=== PATIENT | male | born 1980 | race Caucasian/White ===

== ENCOUNTER 2020-01-07 15:31 | Emergency (ER) | payer MEDICAID, SELFPAY ==
[2020-01-07] VITALS (8 sets, daily range): BP systolic 81–104; BP diastolic 48–70; PULSE 51–102; RESP 16–20; TEMP 36.6; O2SAT 96–99; BMI 24.3
--- NOTE | 2020-01-07 15:34 | PC.NURSE ---
placed a call with Daxa Fletcher office staff for her to come see pt before she leaves for the day. Pt has requested some help with his issues
[2020-01-07 16:18] LABS: Basophils % 0.4 % (0.1-2.0); Eosinophils # 0.2 K/mm3 (0.0-0.4); Eosinophils % 2.8 % (0.1-12.0); Hemoglobin 15.7 g/dL (14.1-18.0); Lymphocytes # 1.8 K/mm3 (0.7-4.5); Lymphocytes % 25.4 % (10-50); Mean Corpuscular HGB Conc 34.9 g/dL (31.8-35.4); Mean Corpuscular Hemoglobin 30.5 pg (27.0-31.2); Mean Corpuscular Volume 87.4 fl (80-94); Monocytes # 0.4 K/mm3 (0.1-1.0); Monocytes % 5.2 % (1.7-9.3); Neutrophils # 4.6 K/mm3 (1.8-7.8); Neutrophils % 66.2 % (37.0-80.0); Platelet Count 220 K/mm3 (142-424); Red Blood Count 5.15 M/mm3 (4.60-6.20); Red Cell Distribution Width 13.1 % (11.5-17.5); White Blood Count 6.9 K/mm3 (4.8-10.8)
[2020-01-07 16:25] LABS: Alanine Aminotransferase 35 U/L (12-78); Albumin Level 4.4 g/dl (3.5-5.0); Albumin/Globulin Ratio 1.3 (1.1-1.8); Alkaline Phosphatase 83 U/L (38-126); Anion Gap 15.2 mEq/L (5-15); Aspartate Amino Transferase 49 U/L (17-59); Bilirubin,Total 0.9 mg/dl (0.2-1.3); Blood Urea Nitrogen 15 mg/dl (9-20); Calcium 9.6 mg/dl (8.4-10.2); Carbon Dioxide 28 mmol/L (22.0-30.0); Chloride 98 mmol/L (98-107); Creatinine Clearance Estimated 83 mL/min (50-200); Estimated Glomerular Filt Rate 68 ml/min (>60); GFR (African American) 82 ML/MIN (>60); Globulin 3.3 g/dL (1.3-3.2); Glucose 154 mg/dl (74-100); Lactic Acid 1.7 mmol/L (0.7-2.1); Potassium 3.2 mmoL/L (3.5-5.1); Sodium 138 mmol/L (136-145); Total Protein,Serum 7.7 g/dl (6.3-8.2)
[2020-01-07 16:28] LABS: Acetaminophen < 10 ug/ml (10-30)
--- NOTE | 2020-01-07 16:40 | HMH.EDGENADL ---
ED Disposition Clinical Impression: Heroin overdose Qualifiers: Encounter type: initial encounter Injury intent: accidental or unintentional Qualified Code(s): T40.1X1A - Poisoning by heroin, accidental (unintentional), initial encounter Hypotension Qualifiers: Hypotension type: other hypotension type Qualified Code(s): I95.89 - Other hypotension Disposition: Home, Self-Care Condition on Discharge: Good Instructions: DI for Drug Overdose in Adults Additional Instructions: See Daxa Fletcher in her office on 01/16/2020. Naltrexone, 1/2 tablet on of this week and 1/2 tablet in the office of Daxa Fletcher on 01/16/2020. Prescriptions: Naltrexone HCl 25 mg PO DIRECTED #1 tab Prescription Printed Referrals: PCP,No [Primary Care Provider] - - Critical Care Critical Care Time: No Attestation: On 01/07/20, the high probability of a clinically significant, sudden or life threatening deterioration of the following system(s) required my full and direct attention, intervention and personal management. The time I documented below is in addition to time spent performing reported procedures but includes the following listed in this critical care notation. Total Critical Care Time: 45 Vital system(s) involved:: Circulatory Failure My critical care processes included: Assessment & monitoring of V/S, Initial and Re-exams, Data Review/Interpretation, Coordinating Care, Medication Orders and management, Documentation Medical Decision Making - Medical Records Medical records reviewed: Yes: I reviewed the patient's medical records. - Igor Inquiry Pt receiving controlled substance: No Vital Signs: 01/07/20 15:32 01/07/20 16:53 01/07/20 17:54 Temperature 97.8 F Temperature Source Oral Pulse Rate [Radial] 102 H 57 L 53 L Respiratory Rate 20 Blood Pressure [Right Arm] 104/64 L 91/53 L 91/61 L Blood Pressure Mean [Right Arm] 77 65 71 Blood Pressure Source [Right Arm] Automatic Cuff Automatic Cuff Automatic Cuff Blood Pressure Position [Right Arm] Sitting Sitting Sitting 02 Sat by Pulse Oximetry 98 98 96 Oxygen Delivery Method Room Air Room Air Room Air 01/07/20 18:40 Temperature Temperature Source Pulse Rate [Radial] Respiratory Rate Blood Pressure [Right Arm] 94/62 L Blood Pressure Mean [Right Arm] 72 Blood Pressure Source [Right Arm] Manual Cuff/ Auscultation Blood Pressure Position [Right Arm] 02 Sat by Pulse Oximetry Oxygen Delivery Method - Lab Data Lab results reviewed: Yes: I reviewed the patient's lab results. Lab Results 01/07/20 16:00: WBC 6.9, RBC 5.15, Hgb 15.7, Hct 45.0, MCV 87.4, MCH 30.5, MCHC 34.9, RDW 13.1, Plt Count 220, MPV 8.0, Neut % (Auto) 66.2, Lymph % (Auto) 25.4, [place] % (Auto) 5.2, Eos % (Auto) 2.8, Baso % (Auto) 0.4, Neut # (Auto) 4.6, Lymph # (Auto) 1.8, [place] # (Auto) 0.4, Eos # (Auto) 0.2, Baso # (Auto) 0.0 01/07/20 16:00: Sodium 138, Potassium 3.2 L, Chloride 98, Carbon Dioxide 28, Anion Gap 15.2 H, BUN 15, Creatinine 1.20, Estimated Creat Clear 83, Estimated GFR 68, Est GFR ( Amer) 82, Glucose 154 H, Calcium 9.6, Total Bilirubin 0.9, AST 49, ALT 35, Alkaline Phosphatase 83, Total Protein 7.7, Albumin 4.4, Globulin 3.3 H, Albumin/Globulin Ratio 1.3, Salicylates < 1.0 L, Acetaminophen < 10 L 01/07/20 16:00: Lactate 1.7 01/07/20 16:00: Plasma/Serum Alcohol < 10 01/07/20 16:48: Urine Opiates Screen Negative, Urine Methadone Screen Negative, Ur Barbituates Screen Negative, Ur Phencyclidine Scrn Negative, Ur Amphetamines Screen , U Benzodiazepines Scrn Negative, Urine Cocaine Screen Negative, U Marijuana (THC) Screen Positive H Result diagrams: 01/07/20 16:00 01/07/20 16:00 Orders (Tests/Meds): ED MEDICATIONS Generic Name Dose Route Start Last Admin Trade Name Freq PRN Reason Stop Dose Admin Sodium Chloride 1,000 mls @ 999 mls/hr 01/07/20 18:00 01/07/20 18:00 Sod Chlor 0.9% 1000ml Bag IV 01/07/20 19:00 999 mls/hr .[id number] [facility] Administrati
--- NOTE | 2020-01-07 16:41 | PC.NURSE ---
Spoke with office staff again, Haydee, she stated that keyon was seeing her last pt for the day and that she would have her come down after that.
[2020-01-07 16:46] LABS: Salicylate < 1.0 mg/dL (2.0-20.0)
[2020-01-07 17:10] LABS: Barbiturates Screen,Urine Negative ng/ml (<200); Benzodiazepines Screen,Urine Negative ng/ml (<200)
[2020-01-07 17:11] LABS: Methadone Screen,Urine Negative ng/ml (<300)
[2020-01-07 17:12] LABS: Cannabinoid Screen,Urine Positive ng/ml (<50)
[2020-01-07 17:13] LABS: Cocaine Screen,Urine Negative ng/ml (<300); Opiate Screen,Urine Negative ng/ml (<300)
[2020-01-07 17:14] LABS: Phencyclidine Screen,Urine Negative ng/ml (<25)
--- NOTE | 2020-01-07 17:17 | PC.NURSE ---
Daxa Fletcher and Chely Bustos were here to speak to pt for addiction consult
--- NOTE | 2020-01-07 17:30 | HMH.BHCONS ---
*Admission Date: 01/07/20 *Reason for consult:: heroin overdose *History of present illness: I saw patient [place] [facility]. He is here for heroin overdose. -he states that he used his normal amount -but it was a stronger batch -that he did shoot up -and he overdosed -he has never overdosed before -this really scared him -he states that he has used off and on for some time -normally just weed -but every few days; he will use heroin -he is homeless -couch hoping; living with a friend now -he has a lot of depression -has 4 kids -only gets to talk to 2 of them on the phone -doesn't get to see any of them -one has been adopted -he states that he wants to get help -he has been using since he was 14 years old I did talk to him about different options he has for the drug abuse. -inpatient detox--doesn't want to do this cause of his job -nothing--he states that he wants help -outpatient treatment -vivitrol -naltrexone He wants to try the vivitrol. I did inform him of the following: -needs to be clean from now until the next time he comes in to see me -follow up next week -will do a stat urine drug screen -naltrexone challenge -will get a prescription from ER doctor He is agreeable to all of the above. Examination reveals patient to have no apparent serious mental status abnormalities. Patient is normal in appearance with age appropriate dress and grooming and appears to be stated age. Neither depression nor mood elevation is evident. Speech is normal in rate, volume, and articulation and language skills are intact. Patient convincingly denies suicidal and self injurious ideas or intentions. Homicidal or assaultive ideas or intentions are also denied. Hallucinations and delusions are denied and behavior is generally appropriate. Associations are intact, thinking is basically logical and thought content is appropriate. There are no signs of cognitive difficulty, based on vocabulary and fund of knowledge. Memory is intact for recent and remote events and the patient is oriented to time, place, and person. There are no apparent signs of anxiety. A normal attention span is in evidence and patient exhibits no signs of hyperactivity. Insight and judgment appear intact. RECOMMENDATIONS: 1. Naltrexone 50mg tablet; take 1/2 tablet on January 15. Then bring the other 1/2 with him to see me on January 16. 2. Stat urine drug screen on January 16 3. Follow-up with me in the outpatient clinic on January 16 at 1pm. TIME IN: 1700 TIME OUT: 1730 [facility] History *Have you ever received a pneumonia vaccine?: No *Have you received a flu vaccine this season?: No - *Social History Smoking Status: Current every day smoker Tobacco Type: cigarettes # Packs/Day (cigarettes): 1 Alcohol Intake: never Alcohol Intake Frequency:: a few times a week *Occupational Status:: unemployed Housing: house *Travel in the last 8 weeks: None Family Hx:: Unable to obtain Meds Home Medications Medication Instructions Recorded Confirmed Type Sulfamethoxazole/Trimethoprim 1 each PO BID #14 tablet 05/15/18 Rx [Bactrim DS tablet] cephALEXin [Keflex 500mg Cap] 500 mg PO TID #30 cap 05/15/18 Rx Allergies Allergy/AdvReac Type Severity Reaction Status Date / Time BEANS Allergy Unknown SWELLING Uncoded 06/13/17 15:38 Exam Vital signs and Labs for Last 24 Hours: Temp Pulse Resp BP Pulse Ox 97.8 F 57 L 20 91/53 L 98 01/07/20 15:32 01/07/20 16:53 01/07/20 15:32 01/07/20 16:53 01/07/20 16:53 Laboratory Results - last 24 hr 01/07/20 16:00: WBC 6.9, RBC 5.15, Hgb 15.7, Hct 45.0, MCV 87.4, MCH 30.5, MCHC 34.9, RDW 13.1, Plt Count 220, MPV 8.0, Neut % (Auto) 66.2, Lymph % (Auto) 25.4, [place] % (Auto) 5.2, Eos % (Auto) 2.8, Baso % (Auto) 0.4, Neut # (Auto) 4.6, Lymph # (Auto) 1.8, [place] # (Auto) 0.4, Eos # (Auto) 0.2, Baso # (Auto) 0.0 01/07/20 16:00: Sodium 138, Potassium 3.2 L, Chloride 98, Carbon Dioxide 28, Anion Gap 15.2 H, BUN 15, Creatinine 1.20, Bridgette
[2020-01-07 17:58] LABS: Ethyl Alcohol < 10 mg/dl (0-10)
--- NOTE | 2020-01-07 18:34 | PC.NURSE ---
Dr. Michelle notified of patients B/P.
--- NOTE | 2020-01-09 11:48 | PC.NURSE ---
Left messages attempting to contact pt to return to er due to blood culture results
[2020-01-13 18:33] LABS: Amphetamine Positive (.); Amphetamines Positive (.); Methamphetamine Positive (.)
[2020-01-13 19:38] LABS: Amphetamine (GC/MS) 1188 ng/mL (Cutoff=500); Methamphetamine (GC/MS) 4458 ng/mL (Cutoff=500)
== END 2020-01-07 21:01 | disposition home or self-care (01) ==
PROVIDERS: Emergency Provider Emergency Medicine
DX: T40.1X1A Poisoning by heroin, accidental (unintentional), initial encounter (principal); F12.10 Cannabis abuse, uncomplicated; I95.89 Other hypotension; F17.210 Nicotine dependence, cigarettes, uncomplicated
CPT/HCPCS: 36415; 80053; 80305; 80324; 80329; 83605; 85025; 87040; 87077; 96365; 96366; 96375; 99284; J2405

== ENCOUNTER 2020-02-13 17:40 | Emergency (ER) | payer MEDICAID, SELFPAY ==
[2020-02-13 17:42] VITALS: BP 115/76; PULSE 85; PULSE 88; RESP 16; TEMP 36.6; O2SAT 100; O2SAT 98; BMI 25.8
--- NOTE | 2020-02-13 17:57 | HMH.EDEYEP ---
ED Disposition Clinical Impression: Corneal abrasion Qualifiers: Encounter type: initial encounter Laterality: left Qualified Code(s): S05.02XA - Injury of conjunctiva and corneal abrasion without foreign body, left eye, initial encounter Disposition: Home, Self-Care Condition on Discharge: Fair Instructions: DI for Corneal Abrasion Prescriptions: Erythromycin Base [Erythromycin 1gm opth ointment] 1 gm OP QID 5 Days #1 oint...g. Transmission Status: Pending to [id number] Referrals: PCP,No [Primary Care Provider] - - Critical Care Critical Care Time: No Attestation: On 02/13/20, the high probability of a clinically significant, sudden or life threatening deterioration of the following system(s) required my full and direct attention, intervention and personal management. The time I documented below is in addition to time spent performing reported procedures but includes the following listed in this critical care notation. Medical Decision Making - Medical Records Medical records reviewed: Yes: I reviewed the patient's medical records. - Igor Inquiry Pt receiving controlled substance: No Vital Signs: 02/13/20 17:42 Temperature 98 F Temperature Source Oral Pulse Rate [Left Radial] 85 Pulse Rate [Left] 88 Respiratory Rate 16 Blood Pressure [Right Arm] 115/76 Blood Pressure Mean [Right Arm] 89 Blood Pressure Source [Right Arm] Automatic Cuff Blood Pressure Position [Right Arm] Sitting 02 Sat by Pulse Oximetry 98 Oxygen Delivery Method Room Air Medical Decision Narrative: 39-year-old male presented to the emergency department with left eye pain. Patient has evidence of a corneal abrasion. Patient is feeling much better after tetracaine administration. Patient will be given short course antibiotics. Needs to follow-up with ophthalmology. Given strict return precautions. Verbalized understanding. Eye Problem HPI - General Chief complaint: Eye Problems Stated complaint: Splinter in left eye Time Seen by Provider: 02/13/20 17:45 Mode of Arrival: Ambulatory Limitations: No Limitations Description of Symptoms (Recalled from ER Triage Doc. by RN): TO ED PER [employer] CAR WITH C/O LT EYE PAIN FB SENSATION SINCE YESTERDAY STATES CUTTING WOOD AND SOME FLEW INTO MY EYE HAS HAD PAIN SINCE PROGRESSIVELY GETTING WORSE. C/O TEARING AND PHOTOPHOBIA. - History of Present Illness HPI Narrative: 39-year-old male presenting to the emergency department with left-sided eye pain. 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 This occurred yesterday. Patient states that the pain is worsened over today. Has had difficulty opening his eyes and is very sensitive to light. Patient was not wearing safety glasses when this happened. No contacts. Denies any other injuries. No headache or focal weakness. The patient does not have any significant change in vision, however has not been opening his eyes secondary to pain. Patient's tetanus immunization is up-to-date. - Related Data Previous Rx's Medication Instructions Recorded Naltrexone HCl 25 mg PO DIRECTED #1 tab 01/07/20 Erythromycin Base [Erythromycin 1 gm OP QID 5 Days #1 oint...g. 02/13/20 1gm opth ointment] Allergies Allergy/AdvReac Type Severity Reaction Status Date / Time BEANS Allergy Unknown SWELLING Uncoded 06/13/17 15:38 [facility] History - Hepatitis A Screen Drug use history?: No High risk sexual behaviors?: No History of sexually transmitted infection?: No Currently employed?: No Childcare worker?: No Do you have indoor plumbing?: Yes Do you have electricity?: Yes Attestation statement:: This patient has been screened for Hepatitis A risk factors. I have reviewed the patient's past medical history: Yes - Social History Smoking Status: Current every day smoker Tobacco Type: cigarettes # Packs/Day (cigarettes): 1 Alcohol Intake: never Alcohol Intake Frequency
[2020-02-13 18:12] VITALS: BP 115/76; PULSE 88; O2SAT 100
[2020-02-13 18:33] VITALS: BP 116/74; PULSE 68; RESP 16; TEMP 36.6; O2SAT 98
== END 2020-02-13 18:35 | disposition home or self-care (01) ==
PROVIDERS: Emergency Provider Emergency Medicine
DX: S05.02XA Injury of conjunctiva and corneal abrasion without foreign body, left eye, initial encounter (principal); F17.210 Nicotine dependence, cigarettes, uncomplicated; W45.8XXA Other foreign body or object entering through skin, initial encounter; Y92.89 Other specified places as the place of occurrence of the external cause
CPT/HCPCS: 99282